=== PATIENT | female | born 2005 | race African-American/Black ===

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

== ENCOUNTER 2024-05-09 13:31 | Emergency (ER) | payer BC, SELFPAY ==
--- NOTE | ~2024-05-09 | XR_ITS ---
EXAMINATION: XR abdomen/kub 1V DATE: 05/09/2024 15:31 INDICATION: Abdominal fullness. TECHNIQUE: A supine view of the abdomen on 2 radiographs was obtained. COMPARISON: 05/09/2011 at 10:12 PM FINDINGS: There is approximately 7 cm ball of stool at the rectum. Small amount of stool is gas scattered throu ghout the more proximal colon. No dilated loops of gas-filled bowel to suggest obstruction. Visualize d lower lungs are clear with no pleural effusion. Heart size is normal. Bones and soft tissues are un remarkable. IMPRESSION: 1. Persistent 7 cm ball of stool at the rectum consistent with constipation. Reviewed, dictated and finalized at location A. HASING INTERN
--- NOTE | 2024-05-09 13:44 | ED.ABDPAIN ---
HPI - Abdominal Pain General Chief Complaint: Nausea/Vomiting/Diarrhea Stated Complaint: Abdominal Pain Time Seen by Provider: 05/09/24 13:32 Source: patient Mode of arrival: ambulatory Limitations: no limitations History of Present Illness HPI narrative: Jose Luis is a 19 year old female patient presenting to the clinic today with complaints generalized abdominal discomfort, nausea, feeling full after 2 bites of food. States the symptoms have been going on for over 1 year. Has a primary care provider appointment tomorrow regarding this issue but states she has to work so her mother told her to come and here to be evaluated. Does suffer from some constipation. Last menstrual period was the end March or early April. Denies any chance of . States last time she had intercourse was in February. Denies any vaginal discharge or urinary symptoms. Last bowel movement was yesterday and soft. Denies any GERD symptoms. States she has has not had any weight loss over the last year. States she had a fever last week. Did vomit on . Related Data Home Medications ?Medication ?Instructions ?Recorded ?Confirmed ?Last Taken ?Type norethindrone 1 mg-ethinyl 1 tablet PO DAILY 10/19/23 10/19/23 Unknown History estradiol 10 mcg (24)-iron 10 mcg(2) tablet (Lo Loestrin Fe) Allergies Allergy/AdvReac Type Severity Reaction Status Date / Time Sulfa (Sulfonamide Allergy Intermediate Hives Verified 05/09/24 13:46 Antibiotics) AMOXICILLIN TRIHYDRATE Allergy Intermediate RASH Uncoded 05/09/24 13:46 Review of Systems Review of Systems: Pertinent positives per HPI. Patient denies any fever, chills, rash, headache, visual changes, dizziness, cough, runny nose, sore throat, shortness of breath, chest pain, palpitations, vomiting, diarrhea, constipation, or any urinary issues. [facility] Past Medical History Medical History Ear infection Surgical History Surgical History No history of previous surgery Family History Family History Grandparent Hypertension Diabetes mellitus Social History Social History Smoking status: Never smoker Alcohol intake: never Substance use: never Living arrangements: with family Occupation/Education: student Gender identity (if verbalized by the patient): Female Comments At the time of my signature, I reviewed and agree with the nursing past medical, surgical, social, and family history. There is no relevant family history pertinent to the patient complaint. Exam Narrative: General: Well-developed, thin, in no apparent distress. Head: Normocephalic, atraumatic. Cardio: Regular rate and rhythm, s1 and s2 normal, no murmur appreciated. Resp: Clear to auscultation bilaterally, no rhonchi, rales, wheezing or rubs. Abdomen: Soft, pliable, bowel sounds present in all quadrants, non-tender to palpation, no organomegly, no CVAT tenderness. Course Course Emergency Course: Portions of this record may have been created with voice recognition software. Level of Care: Express Care Visit Vital Signs Vital signs: Vital Signs Temperature 36.3 C L 05/09/24 13:46 Pulse Rate 79 05/09/24 13:46 Respiratory Rate 15 05/09/24 13:46 Blood Pressure 112/62 05/09/24 13:46 Pulse Oximetry 99 05/09/24 13:46 Oxygen Delivery Room Air 05/09/24 13:46 Temperature 36.3 C L 05/09/24 13:46 Pulse Rate 79 05/09/24 13:46 Respiratory Rate 15 05/09/24 13:46 Blood Pressure 112/62 05/09/24 13:46 Pulse Oximetry 99 05/09/24 13:46 Oxygen Delivery Room Air 05/09/24 13:46 Vital signs reviewed MDM - Abdominal Pain MDM Narrative Medical decision making narrative: At the time of visit patient is resting comfortably on the exam table. Patient appears to be nontoxic. Labs: Urinalysis and bedside test was performed. Bedside test is negative. Urinalysis shows a trace of leukocytes, 1+ protein, 3+ blood, 1+ ketone, and 1+ bili with a high specific gravity of 1.030. Diagnostics: KUB x-ray was performed and shows a 7 cm ball of stool at the rectum consistent with constipation with a small amount of stool and gas scattered throughout the more proximal colon. No sign of obstruction Plan: Patient has constipation/UTI. Supportive measures were discussed with the patient and they voiced understanding discharge instructions and agrees to treatment plan. Return precautions reviewed Differential Diagnosis Differential diagnosis: Likely abdominal pain, acute appendicitis, constipation, diverticulitis, endometriosis, gastroenteritis, pancreatitis, small bowel obstruction and other (UTI) Lab Data Labs: Lab Results 05/09/24 Range/Units 14:50 POC Urine Color Yellow POC Urine Clarity Cloudy POC Urine pH 5.5 POC Ur Specif [place] 1.030 POC Urine Protein 1+ (Negative) POC Ur Glucose (UA) Negative (Negative) POC Urine Ketones 1+ (Negative) POC Urine Blood 3+ (Negative) POC Urine Nitrite Negative (Negative) POC Urine Bilirubin 1+ (Negative) POC Urine Urobilinogen 0.2 POC U Leukocyte Esteras Trace (Negative) POC Urine HCG, Qual Negative (Negative) Imaging Data Radiologist's impression: ITS Impressions Abdomen X-Ray 05/09/24 15:34 IMPRESSION: 1. Persistent 7 cm ball of stool at the rectum consistent with constipation. Discharge Plan Discharge Clinical Impression: UTI (urinary tract infection) Qualifiers: Urinary tract infection type: acute cystitis Hematuria presence: with hematuria Qualified Code(s): N30.01 - Acute cystitis with hematuria Constipation Qualifiers: Constipation type: unspecified constipation type Qualified Code(s): K59.00 - Constipation, unspecified Patient Disposition: Home, Self-Care Condition: Stable Instructions: Antibiotic Form, Constipation (ED), Urinary Tract Infection in Women (ED), Abdominal Pain (ED) Additional Instructions: X-ray shows a 7 cm ball of stool at the rectum consistent with constipation Urinalysis shows bacteria, protein, blood, ketones, and bili in your urine. We will send urine for culture. Take Macrobid as prescribed for UTI Take MiraLax, biscodyl laxative, and magnesium titrate as discussed for constipation-start by taking 2 bisacodyl tablets with 1/2 bottle magnesium citrate (drink within 10-15 minutes)- may drink other 1/2 of magnesium citrate drink over (10-15 minutes)if no results in 1 hour. Drink 1 scoop of miralax with 8 ounces of water, juice, or Gatorade daily Increase fluids and stay well hydrated Increase fiber in your diet-may take Metamucil Follow-up with your primary care doctor as scheduled Patient Language: Hungarian Prescriptions: New polyethylene glycol 3350 [ClearLax] 17 gram/dose powder 17 g PO DAILY 30 Days Qty: 510 0RF magnesium citrate Solution 300 ml PO ONCE Qty: 296 0RF Rx Instructions: drink 150ml as a single dose and if no results in one hour drink another 150ml bisacodyl 5 mg tablet 10 mg PO ONCE 1 Days Qty: 2 0RF nitrofurantoin monohyd/m-cryst [Macrobid] 100 mg capsule 100 mg PO Q12H 5 Days Qty: 10 0RF Rx Instructions: must administer with a meal/food No Action Lo Loestrin Fe 1 mg-10 mcg (24)/10 mcg (2) tablet 1 tablet PO DAILY Follow-up/Referrals: Matthew Fabian MD [Primary Care Provider] - Stand Alone Forms: Work/School Release IP Time of Disposition: 15:56 Quality NIHSS Nursing Documentation ED NIHSS nursing documentation: reviewed/agree
[2024-05-09 13:46] VITALS: BP 112/62; PULSE 79; RESP 15; TEMP 36.3; O2SAT 99
[2024-05-09 15:37] LABS: BEDSIDEPREGUCG Negative (Negative); EDUAAPPEAR Cloudy; EDUABILI 1+ (Negative); EDUABLOOD 3+ (Negative); EDUACOLOR1 Yellow; EDUAGLUCOSE Negative (Negative); EDUAKETONE 1+ (Negative); EDUALEUKO Trace (Negative); EDUANITRATE Negative (Negative); EDUAPH 5.5; EDUAPROTEIN 1+ (Negative); EDUAUROBILI 0.2
== END 2024-05-09 16:05 | disposition home or self-care (01) ==
PROVIDERS: Emergency Provider Nurse Practitioner Family; PCP Pediatrics
DX: N30.01 Acute cystitis with hematuria (principal); K59.00 Constipation, unspecified
CPT/HCPCS: 74018; 81003; 81025; 87086; 99213; G0463

== ENCOUNTER 2024-08-05 18:34 | Emergency (ER) | payer BC, SELFPAY ==
[2024-08-05 18:40] VITALS: BP 118/64; PULSE 82; RESP 19; TEMP 36.7; O2SAT 100
--- NOTE | 2024-08-05 19:06 | ED.URI ---
HPI - URI/Sore Throat General Chief Complaint: Upper Respiratory Infection Stated Complaint: Sinus Source: patient Mode of arrival: ambulatory Limitations: no limitations History of Present Illness HPI Narrative: Patient is a 19-year-old female who presents to the clinic with complaints of congestion x 2 days. She states that she has had some people at her work test positive for COVID so she was concerned for that. She denies any shortness of breath, fevers, body aches, chills, or difficulty swallowing. Related Data Home Medications ?Medication ?Instructions ?Recorded ?Confirmed ?Last Taken ?Type norethindrone 1 mg-ethinyl 1 tablet PO DAILY 10/19/23 10/19/23 Unknown History estradiol 10 mcg (24)-iron 10 mcg(2) tablet (Lo Loestrin Fe) Allergies Allergy/AdvReac Type Severity Reaction Status Date / Time Sulfa (Sulfonamide Allergy Intermediate Hives Verified 08/05/24 18:55 Antibiotics) AMOXICILLIN TRIHYDRATE Allergy Intermediate RASH Uncoded 08/05/24 18:55 Review of Systems Review of Systems: CONSTITUTIONAL: Denies body aches, fever, chills, or sweats. EYES: Denies visual changes, redness, or discharge. ENT: Reports rhinorrhea, sore throat, or otalgia. Reports congestion and sore throat. CARDIOVASCULAR: Denies chest pain, palpitations, or edema. RESPIRATORY: Denies cough or dyspnea. GASTROINTESTINAL: Denies abdominal pain, nausea, vomiting, or diarrhea. GENITOURINARY: Denies dysuria or hematuria. SKIN: Denies rash, itching, or wounds. MUSCULOSKELETAL: Denies back pain, joint pain, or myalgia. NEUROLOGIC: Denies headache, numbness, tingling, or weakness. PSYCH: Denies depression or anxiety. All systems reviewed & are unremarkable except as noted in HPI and below PMFSH Past Medical History Medical History Ear infection Surgical History Surgical History No history of previous surgery Family History Family History Grandparent Hypertension Diabetes mellitus Social History Social History (Reviewed 05/09/24 @ 16:02 by LOUANN Wallis Smoking status: Never smoker Alcohol intake: never Substance use: never Living arrangements: with family Occupation/Education: student Gender identity (if verbalized by the patient): Female Comments At time of signature, I have reviewed and agree with nursing past medical, surgical, social and family history unless otherwise noted. Please see nursing chart for further information. There is no relevant family history pertinent to the presenting complaint. Exam Narrative: GENERAL: Well-appearing, well-nourished, and in no acute distress. EYES: EOMI. No redness or drainage. Conjunctivae normal. ENT: Mucous membranes pink and moist. Nares clear. No rhinorrhea. TMs normal bilaterally. Throat Erythematous without tonsillar exudate, uvula midline. Nasal congestion noted. NECK: Normal AROM. Supple. No lymphadenopathy. CHEST: No respiratory distress. Clear to auscultation. HEART: Regular rate and rhythm. No murmur appreciated. Normal peripheral pulses. ABDOMEN: Soft, nontender, nondistended, normal active bowel sounds. SKIN: Warm, dry, no rash. Capillary refill normal. Normal skin turgor. NEURO: No focal deficits. Alert and oriented x3. Gait steady. PSYCH: Normal affect. No signs of depression or anxiety. Course Course Level of Care: Express Care Visit Vital Signs Vital signs: Vital Signs Temperature 98.1 F 08/05/24 18:40 Pulse Rate 82 08/05/24 18:40 Respiratory Rate 19 08/05/24 18:40 Blood Pressure 118/64 08/05/24 18:40 Pulse Oximetry 100 08/05/24 18:40 Oxygen Delivery Room Air 08/05/24 18:40 Temperature 98.1 F 08/05/24 18:40 Pulse Rate 82 08/05/24 18:40 Respiratory Rate 19 08/05/24 18:40 Blood Pressure 118/64 08/05/24 18:40 Pulse Oximetry 100 08/05/24 18:40 Oxygen Delivery Room Air 08/05/24 18:40 MDM - URI/Sore Throat MDM Narrative Medical decision making narrative: Discussed physical exam findings. Advised supportive measures and signs/symptoms to go to the ER. Pt is appropriate for outpt treatment and follow up. Differential Diagnosis Differential diagnosis: Likely upper respiratory infection, influenza and other (covid, flu, strep throat) Critical Care Time Critical Care Time Critical Care Time: No Discharge Plan Discharge Clinical Impression: Upper respiratory infection Qualifiers: URI type: unspecified viral URI Qualified Code(s): J06.9 - Acute upper respiratory infection, unspecified Patient Disposition: Home Condition: Stable Instructions: Upper Respiratory Infection (ED) Additional Instructions: Recommend Flonase spray and Zyrtec (or Claritin/Danielle) Tylenol every 8 hours as needed for pain Symptomatic treatment includes: rest, fluids, and increase humidity of the air at home. Follow up with your primary care provider in 1 week. Go to the ER for worsening symptoms or concerns. Patient Language: Bulgarian Prescriptions: No Action Lo Loestrin Fe 1 mg-10 mcg (24)/10 mcg (2) tablet 1 tablet PO DAILY Follow-up/Referrals: Matthew Fabian MD [Primary Care Provider] - Stand Alone Forms: Work/School Release IP Time of Disposition: 19:14
[2024-08-05 19:10] LABS: EDCOVIDSCREEN Negative (Negative); EDINFLUASCREEN Negative (Negative); EDINFLUBSCREEN Negative (Negative); EDSTREPNEGPOS1 Negative (Negative)
== END 2024-08-05 19:24 | disposition home or self-care (01) ==
PROVIDERS: PCP Pediatrics
DX: J06.9 Acute upper respiratory infection, unspecified (principal); Z20.822 Contact with and (suspected) exposure to COVID-19
CPT/HCPCS: 87081; 87426; 87804; 87880; 99213; G0463